=== PATIENT | male | born 1990 | race Caucasian/White ===

== ENCOUNTER 2020-05-01 17:01 | Inpatient (IN) | payer OTHER ==
[~2020-05-01] VITALS: Ht 170.2 cm; Wt 69.4 kg
[2020-05-01 17:20] VITALS: BP 129/80
[2020-05-01 18:06] LABS: URINE AMPHETAMINES > 1000 (1000ng/ml); URINE BARBITURATES < 200 (200ng/ml); URINE BENZODIAZEPINES < 200 (200ng/ml); URINE CANNABINOIDS (THC) < 50 (50ng/ml); URINE COCAINE < 300 (300ng/ml); URINE METHADONE < 300 (300ng/ml); URINE OPIATES < 300 (300ng/ml)
[2020-05-01 18:07] LABS: BILIRUBIN Negative; BLOOD Negative (Negative); CLARITY Clear (Clear); COLOR Yellow (Yellow); GLUCOSE Negative; KETONE Negative
[2020-05-01 18:08] LABS: LEUKO ESTERASE Negative (Negative); NITRITE Negative (Negative); PH 6.5 (4.5-8.0)
[2020-05-01 18:09] LABS: BASO # 0.1 10*3/uL (0.0-0.1); BASO % 1.4 % (0.0-1.0); EOS # 0.1 10*3/uL (0.0-0.4); HEMATOCRIT 45.3 % (42.0-52.0); LYMPH # 1.6 10*3/uL (1.3-4.4); LYMPH % 32.4 % (27.0-41.0); MEAN CELL VOLUME 85.2 fl (80.0-94.0); MEAN CORPUSCULAR HGB 27.8 pg (27.0-31.0); MEAN CORPUSCULAR HGB CONC 32.7 g/dl (33.0-37.0); MEAN PLATELET VOLUME 9.5 fl (9.6-12.3); MONO # 0.6 10*3/uL (0.1-1.0); MONO % 11.8 % (3.0-9.0); NEUT # 2.6 10*3/uL (2.3-7.9); NEUT % 53.2 % (47.0-73.0); PLATELET COUNT AUTOMATED 248 10*3/uL (130-400); RED BLOOD COUNT 5.32 10*6/uL (4.50-5.90); RED CELL DISTRI WIDTH 13.3 % (0-14.5); WHITE BLOOD COUNT 4.8 10*3/uL (4.8-10.8)
[2020-05-01 18:10] LABS: URINE PHENCYCLIDINE > 25 (25ng/ml)
[2020-05-01 18:24] LABS: ALBUMIN 3.6 gm/dl (3.1-4.5); ALKALINE PHOSPHATASE 74 U/L (45-117); BUN 12 mg/dl (7-24); CHLORIDE 108 mmol/L (98-107); CREATININE 1.07 mg/dL (0.70-1.30); POTASSIUM 3.6 mmol/L (3.5-5.1); SGOT/AST 37 IU/L (3-35); SGPT/ALT 58 U/L (12-78); SODIUM 140 mmol/L (136-145); TOTAL PROTEIN 6.9 gm/dL (6.4-8.2)
[2020-05-01 18:26] LABS: ACETAMINOPHEN (TYLENOL) < 5.0 ug/ml (10-30); ETHYL ALCOHOL < 3.0 mg/dl (<3)
--- NOTE | 2020-05-01 18:50 | NUR ---
30 year old MALE admitted to room # 516 for stabilization. Reports an addiction to HEROIN last used 24 hours prior to admission. Compliant with admission procedure. See assessment forms for additional information about patient status.
[2020-05-01 20:00] VITALS: BP 126/86
[2020-05-02] VITALS: BP 122/91
--- NOTE | 2020-05-02 01:16 | NUR ---
PATIENT RESTING IN BED SLEEPING AT THIS TIME. PATIENT HAS BEEN SLEEPING ALL SHIFT. WEB APPLICATIONS PROGRAMMER APPLIED EARLIER. DENIES COMPLAINTS OF PAIN OR DISCOMFORT. REFUSES NICOTROL INHALER. WILL CONTINUE TO MONITOR. CALL LIGHT IN REACH.
--- NOTE | 2020-05-02 04:56 | NUR ---
[facility] CALLED WANTING AN UPDATE ON PATIENT. STATED THEY WOULD BE CALLING BACK ONE MORE TIME FOR ANOTHER UPDATE.
[2020-05-02 06:53] LABS: ALBUMIN 3.4 gm/dl (3.1-4.5); ALKALINE PHOSPHATASE 74 U/L (45-117); BUN 14 mg/dl (7-24); CHLORIDE 109 mmol/L (98-107); CREATININE 1.11 mg/dL (0.70-1.30); POTASSIUM 3.9 mmol/L (3.5-5.1); SGOT/AST 35 IU/L (3-35); SGPT/ALT 55 U/L (12-78); SODIUM 139 mmol/L (136-145); TOTAL PROTEIN 6.8 gm/dL (6.4-8.2)
[2020-05-02 08:00] VITALS: BP 134/80
--- NOTE | 2020-05-02 09:35 | NUR ---
PT RESTING. NO VOICED COMPLAINTS. WILL CONTINUE TO MONITOR. VSS.
--- NOTE | 2020-05-02 11:16 | NUR ---
PATIENT DENIES ANY NEED FOR PRN MEDS. WILL CONTINUE TO MONITOR. MIKEL FROM [facility] IN TO SEE PATIENT.
--- NOTE | 2020-05-02 11:41 | NUR ---
[facility] STAFF IN TO SEE PATIENT. PATIENT MEETS [facility] CRITER[facility]. PATIENT IS WANTING TO FOLLOW UP WITH [facility] FOR HIS AFTERCARE PLAN. MIKEL MARIA B.A. SENIOR COST ACCOUNTANT
[2020-05-02 12:00] VITALS: BP 134/69
--- NOTE | 2020-05-02 14:05 | NUR ---
ROUTINE SUBUTEX GIVEN AT THIS TIME. NO VOICED COMPLAINTS PER PT. WILL CONTINUE TO MONITOR.
--- NOTE | 2020-05-02 15:05 | NUR ---
Patient resting. Responding to scheduled medications with fewer complaints of pain and anxiety.
[2020-05-02 16:23] VITALS: BP 119/82
--- NOTE | 2020-05-02 17:33 | NUR ---
PT REQUESTING WOOL HANKER TO BE REMOVED. THIS NURSE SPOKE WITH AND IT IS OKAY TO D/C WOOL HANKER.
--- NOTE | 2020-05-02 18:40 | NUR ---
PATIENT RESTING. DENIES ANY NEED FOR PRN MEDS. WILL CONTINUE TO MONITOR.
[2020-05-02 20:00] VITALS: BP 106/62
--- NOTE | 2020-05-02 21:30 | NUR ---
PT SEEN AND ASSESSED. PT DENIES ANY WITHDRAWL SYMPTOMS AT THIS TIME. PT STATES HE IS FEELING FINE AND DENIES ANY CURRENT COMPLAINTS. PT GIVEN SCHEDULED MEDICATIONS AND REVIEWED SYMPTOMS TO REPORT. PT VERBALIZES HIS UNDERSTANDING OF EDUCATION PROVIDED.
[2020-05-03] VITALS: BP 123/75
--- NOTE | 2020-05-03 01:01 | NUR ---
24 HR chart check completed.
--- NOTE | 2020-05-03 02:26 | NUR ---
24 HR chart check completed.
[2020-05-03 08:00] VITALS: BP 110/62
--- NOTE | 2020-05-03 10:01 | NUR ---
PT SLEEPING. AROUSES EASILY. RESPIRATIONS EASY, REGULAR. SCHEDULED MEDS GIVEN PER ORDER. PT REFUSED LOVENOX, DESPITE EDUCATION. PT DENIES ANY NEED FOR PRN MEDS. WILL CONTINUE TO MONITOR. VSS. CALL LIGHT WITHIN REACH.
[2020-05-03 12:00] VITALS: BP 128/61
--- NOTE | 2020-05-03 12:30 | NUR ---
[facility] STAFF IN TO SEE PATIENT. [facility] WILL BE TRANSPORTING PATIENT ON THURSDAY, May POST DISCHARGE. MIKEL MARIA B.A. FACSIMILE MACHINE OPERATOR
[2020-05-03 16:00] VITALS: BP 121/87
--- NOTE | 2020-05-03 16:00 | NUR ---
PATIENT CONTINUES TO REST QUIETLY IN BED. NO VOICED COMPLAINTS. DENIES ANY NEED FOR PRN MEDS. WILL CONTINUE TO MONITOR. VSS.
[2020-05-03 20:00] VITALS: BP 128/73
--- NOTE | 2020-05-03 20:05 | NUR ---
PT SEEN AND ASSESSED. PT VERBALIZES NO CURRENT C/O AT THIS TIME. REVIEWED PLAN OF CARE AND MEDICATIONS WITH PATIENT. PT VERBALIZES HIS UNDERSTANDING OF EDUCATION AND STATES NO QUESTIONS OR CONCERNS AT THIS TIME.
[2020-05-03 21:30] VITALS: BP 130/80
--- NOTE | 2020-05-03 22:17 | NUR ---
PT GIVEN SCHEDULED MEDICATIONS. PT CONTINUES TO DENIES SYMPTOMS OF WITHDRAWL AT THIS TIME.
[2020-05-04] VITALS: BP 132/80
--- NOTE | 2020-05-04 01:56 | NUR ---
24 HR chart check completed.
[2020-05-04 08:00] VITALS: BP 114/67
--- NOTE | 2020-05-04 11:00 | NUR ---
Discharge instructions reviewed with patient/family. Patient receptive and verbalizes understanding. Follow-up care arranged. Written instructions given to patient/family. BELONGINGS OBTAINED BY SECURITY. PAPERWORK SIGNED. PATIENT PICKED UP BY [facility] AND TRANSPORTED TO FACILITY. [facility]
== END 2020-05-04 11:00 | disposition home or self-care (01) | DRG 773 ==
LOC: ED 17:01 → EDHOLD 17:55 → 5E 17:55
PROVIDERS: Nurse Practitioner Family; Student in an Organized Health Care Education/Training Program; ADMIT Internal Medicine; ATTEND Internal Medicine
DX: F11.23 Opioid dependence with withdrawal (principal); F12.10 Cannabis abuse, uncomplicated; B19.20 Unspecified viral hepatitis C without hepatic coma; F17.210 Nicotine dependence, cigarettes, uncomplicated; F32.9 Major depressive disorder, single episode, unspecified; F15.10 Other stimulant abuse, uncomplicated; F41.9 Anxiety disorder, unspecified; F19.10 Other psychoactive substance abuse, uncomplicated; R00.1 Bradycardia, unspecified; E66.3 Overweight; Z71.6 Tobacco abuse counseling; Z87.442 Personal history of urinary calculi; Z82.5 Family history of asthma and other chronic lower respiratory diseases; Z80.1 Family history of malignant neoplasm of trachea, bronchus and lung; Z68.23 Body mass index [BMI] 23.0-23.9, adult